=== PATIENT | female | born 1995 | race Caucasian/White ===

== ENCOUNTER → 2018-08-14 | Outpatient (REF) | payer OTHER ==
[2018-08-14 17:40] LABS: HEMATOCRIT 34.2 % (36.0-47.0); HEMOGLOBIN 12.3 g/dl (12.0-15.5); MEAN CORPUSCULAR HEMOGLOBIN 31.9 pg (27.0-33.0); MEAN CORPUSCULAR VOLUME 88.6 fl (80.0-96.0); PLATELET COUNT, AUTOMATED 266 10^3/uL (150-450); RED BLOOD COUNT 3.86 10^6/uL (4.00-5.40); WHITE BLOOD COUNT 9.3 10^3/uL (4.0-10.0)
[2018-08-17 10:08] LABS: HIV 1&2 SCREEN CENTAUR NEGATIVE (NEGATIVE); RUBELLA IgG QUALITATIVE IMMUNE (IMMUNE)
== END ==
LOC: M LAB REF 16:50
PROVIDERS: ATTEND Nurse Practitioner Women's Health
DX: Z34.81 Encounter for supervision of other normal pregnancy, first trimester (principal)

== ENCOUNTER 2018-10-02 15:53 | Emergency (ER) | payer OTHER ==
[~2018-10-02] VITALS: Ht 162.6 cm; Wt 61.4 kg
[2018-10-02 17:38] LABS: BASO % 0.2 % (0.0-1.0); EOS # 0.1 10^3/uL (0.0-0.50); EOS % 0.5 % (0.0-3.0); HEMATOCRIT 33.3 % (36.0-47.0); HEMOGLOBIN 11.6 g/dl (12.0-15.5); LYMPH # 2.3 10^3/uL (1.5-6.5); LYMPH % 20.3 % (24.0-44.0); MEAN CORPUSCULAR HEMOGLOBIN 30.9 pg (27.0-33.0); MEAN CORPUSCULAR HGB CONC 34.8 g/dl (32.0-36.5); MEAN CORPUSCULAR VOLUME 88.6 fl (80.0-96.0); MONO # 0.8 10^3/uL (0.0-0.8); MONO % 6.7 % (0.0-5.0); NEUTROPHILS # 8.1 10^3/uL (1.8-7.7); NEUTROPHILS % 71.6 % (36.0-66.0); PLATELET COUNT, AUTOMATED 229 10^3/uL (150-450); RED BLOOD COUNT 3.76 10^6/uL (4.00-5.40); WHITE BLOOD COUNT 11.3 10^3/uL (4.0-10.0)
[2018-10-02 18:04] LABS: BLOOD UREA NITROGEN 4 MG/DL (7-18); CALCIUM LEVEL 8.7 MG/DL (8.5-10.1); CARBON DIOXIDE LEVEL 27 MEQ/L (21-32); CHLORIDE LEVEL 107 MEQ/L (98-107); CREATININE FOR GFR 0.59 MG/DL (0.55-1.30); GLOMERULAR FILTRATION RATE > 60.0 (>60); GLUCOSE, FASTING 78 MG/DL (70-100); POTASSIUM SERUM 3.6 MEQ/L (3.5-5.1); SODIUM LEVEL 139 MEQ/L (136-145)
--- NOTE | 2018-10-02 18:18 | REPVR ---
EXAM: US , Limited EXAM DATE/TIME: 10/02/2018 5:23 PM CLINICAL HISTORY: 23 years old, female; complicated by abdominal or pelvic pain; Generalized abdominal pain; Second trimester; Gestational age or lmp: 17 weeks 5 days; ; Additional info: Cramping, 18 weeks , oked by Dr. Bowser to change to ltd TECHNIQUE: Imaging protocol: Real-time ultrasound of the maternal uterus with image documentation. Exam focused on the clinical indication. COMPARISON: US OB 10/02/2018 5:11 PM FINDINGS: GESTATION: Gestation: Single gestation. Heart rate: heart rate 143 beats per minute Amniotic fluid: Amniotic fluid index is 18.4 cm. IMPRESSION: Normal amniotic fluid index. Electronically signed by: Ilia Anders On 10/02/2018 18:18:12 PM
[2018-10-02 20:40] LABS: CHLAMYDIA DNA AMPLIFICATION NEGATIVE (NEGATIVE); GC DNA AMPLIFICATION NEGATIVE (NEGATIVE)
[2018-10-02 20:54] VITALS: BP 115/56
[2018-10-02] MEDS ORDERED: AUGM875T28 PO ×2 (20:57→21:08)
== END 2018-10-02 21:16 | disposition home or self-care (01) ==
LOC: M ED 15:53
DX: O23.42 Unspecified infection of urinary tract in pregnancy, second trimester (principal); Z3A.18 18 weeks gestation of pregnancy; Z79.899 Other long term (current) drug therapy

== ENCOUNTER 2018-10-04 21:47 | Inpatient (IN) | payer OTHER ==
[~2018-10-04] VITALS: Ht 162.6 cm; Wt 58.9 kg
[~2018-10-04 21:47] MED LIST: AUGM875T28 PO
[2018-10-04] MEDS ORDERED: NS 1,000 ML IV ONE (22:00)
[2018-10-04] MEDS ORDERED: CHARCOAL ACTIVATED LIQUID 25 GM/120 ML BTL PO ONE (22:00)
[2018-10-04 22:24] LABS: BASO % 0.2 % (0.0-1.0); EOS % 0.1 % (0.0-3.0); HEMATOCRIT 34.2 % (36.0-47.0); HEMOGLOBIN 12.2 g/dl (12.0-15.5); LYMPH # 1.9 10^3/uL (1.5-6.5); LYMPH % 16.3 % (24.0-44.0); MEAN CORPUSCULAR HEMOGLOBIN 31.7 pg (27.0-33.0); MEAN CORPUSCULAR HGB CONC 35.7 g/dl (32.0-36.5); MEAN CORPUSCULAR VOLUME 88.8 fl (80.0-96.0); MONO # 0.7 10^3/uL (0.0-0.8); MONO % 6.3 % (0.0-5.0); NEUTROPHILS % 76.4 % (36.0-66.0); PLATELET COUNT, AUTOMATED 235 10^3/uL (150-450); RED BLOOD COUNT 3.85 10^6/uL (4.00-5.40); WHITE BLOOD COUNT 11.7 10^3/uL (4.0-10.0)
[2018-10-04 22:48] LABS: ACETAMINOPHEN LEVEL < 2.0 UG/ML (10.0-30.0); ALBUMIN 3.5 GM/DL (3.2-5.2); ALT/SGPT 14 U/L (12-78); BILIRUBIN,DIRECT 0.1 MG/DL (0.0-0.2); BILIRUBIN,TOTAL 0.3 MG/DL (0.2-1.0); BLOOD UREA NITROGEN 5 MG/DL (7-18); CALCIUM LEVEL 8.4 MG/DL (8.5-10.1); CARBON DIOXIDE LEVEL 20 MEQ/L (21-32); CHLORIDE LEVEL 109 MEQ/L (98-107); CPK CREATINE PHOSPHOKINASE 77 U/L (26-192); CREATININE FOR GFR 0.57 MG/DL (0.55-1.30); ETHYL ALCOHOL (ETHANOL) < 0.003 % (0.000-0.010); GLOMERULAR FILTRATION RATE > 60.0 (>60); GLUCOSE, FASTING 98 MG/DL (70-100); POTASSIUM SERUM 3.7 MEQ/L (3.5-5.1); SALICYLATE LEVEL < 1.7 MG/DL (5.0-30.0); SODIUM LEVEL 139 MEQ/L (136-145); TOTAL PROTEIN 6.7 GM/DL (6.4-8.2)
[2018-10-04 23:45] LABS: AMPHETAMINES LEVEL URINE NEGATIVE (NEGATIVE); BARBITURATES URINE NEGATIVE (NEGATIVE); BENZODIAZEPINES URINE POSITIVE (NEGATIVE); CANNABINOIDS URINE NEGATIVE (NEGATIVE); COCAINE METABOLITE URINE NEGATIVE (NEGATIVE); METHADONE URINE NEGATIVE (NEGATIVE); OPIATES URINE NEGATIVE (NEGATIVE); PHENCYCLIDINE URINE NEGATIVE (NEGATIVE)
[2018-10-05] MEDS ORDERED: PREN1CHW6 PO (15:55)
[2018-10-05] MEDS ORDERED: ACET-683 PO (15:55)
[2018-10-05] MEDS ORDERED: MOM 30ML SUSPENSION UDC PO PRN ×2 (16:15→16:30)
[2018-10-05] MEDS ORDERED: ACETAMINOPHEN TAB 650MG DOSE (2X325MG) PO PRN ×2 (16:15→16:30)
[2018-10-05] MEDS ORDERED: diphenhydrAMINE 25 MG CAP PO PRN (16:30)
--- NOTE | 2018-10-05 20:42 | ECGEPIP ---
[facility] - ED Test Date: 2018-10-04 Pat Name: JANET VILLARREAL Department: Room: - Gender: Female [employer] U[employer]rer: CHATA : 1995 Requested By: FRANDY Monge Order Number: [id number] Reading MD: Frandy Concepcion Measurements Intervals [place] Rate: 116 P: 53 IN: 153 QRS: 84 QRSD: 86 T: 25 QT: 328 QTc: 456 Interpretive Statements SINUS TACHYCARDIA Comparison tracing not on file Electronically Signed on 10-05-2018 20:41:35 EDT by Frandy Concepcion
[2018-10-05 23:34] VITALS: BP 138/93
[2018-10-06 06:47] VITALS: BP 108/69
[2018-10-06] MEDS: hydrOXYzine 50 MG TAB PO PRN (09:12)
[2018-10-06] MEDS: PRENATAL VITAMINS CHEWABLE TABLET PO SCH (11:02)
--- NOTE | 2018-10-06 11:30 | MHHPEPDOC ---
[facility] History & Physical History and Physical DATE OF ADMISSION: Oct 05, 2018 at 16:09 New Patient Gifty Meadows Age 23 Female Date of : 1995 Date of Service: 10/06/2018 Chief Complaint "I just wanted to kill myself." History of Present Illness The patient a 23 year old woman presented to [facility] reporting that she had been thinking about overdosing on her sertraline. She describes multiple stressors including a recent marriage after a very short courtship to her who's a soldier deployed in [place]. She describes that they had gotten earlier in April after meeting earlier that particular month. She reports that she got and subsequently they were after he found out he would be deploying. She reports that since that point, she has been fairly depressed, alone and isolated. She describes that she's become more unable to attend to her daily needs, endorsing significant loss of interest and concentration focus problems as well as suicidal thoughts. She does describe having significant problems with mood variation, but primarily has difficulty predicting her mood [id number] with no sustained periods of mood variation. Review Of Systems Depression: as above. Anxiety: excessive worry about "small things" with intermittent episodes of panic and appear to be situational [place]: The patient denies any episodes of euphoria/dysphoria associated with decreased need for sleep, hedonism, talkatively or impulsivity lasting longer than 5 days. Psychotic: The patient denies any experiences of auditory or visual hallucinat ions. They deny any episodes of paranoia or delusional thinking in the past Trauma: The patient denies any traumatic events associated with nightmares or intrusive thoughts. Borderline: The patient screens positive for borderline personality disorder as time with significant traits related to chronic anger and emptyness, identity problems, fiery relationships and significant mood variation. Past Psychiatric History The patient has a history of being admitted to a psychiatric unit in the past. Reportedly with a self-harm attempt. Denies any suicide attempt. She reports that she was admitted several years ago by her parents for reported cutting. She describes being diagnosed with anxiety, depression and has seen a counselor and has been on Celexa and sertraline in the past, but reports that she is non- compliant with it as she feels it "doesn't help very well." Allergies Please see below. Family Psychiatric History The patient reports a history of bipolar and anxiety in her family as well as alcoholism on both sides. Denies any history of suicide. Social History The patient grew up in [place], [place] to an intact family. She denies any significant abuse as a child. She describes graduating high school subsequently trying college, but feeling that it was "not for her." She has recently met her of which they had roughly a one-month courtship before getting due to her . She currently lives alone on [place]. No significant legal problems. 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 Describes that her family has some financial troubles that are a source of worry for her. Substance Abuse History The patient reports smoking cannabis intermittently, but not consistently. Reports in the past to drinking alcohol excessively, but currently denies. Medical History The patient is 18 weeks . Mental Status Examination General: Fair hygiene Speech: Spontaneous and fluid Thought processes: Linear and logical MSK: Smooth and coordinated gait, no signs of tremors or involuntary orofacial movements Thought content: Hopelessness Abstract reasoning, and computation: Intact Description of associations: Intact Description of abnormal or psychotic thoughts: Denies any suicidal or homicidal ideation. Denies any auditory or visual hallucinations. Does not appear to be responding to internal stimuli. Does not appear to be endorsing any bizarre or paranoid ideation. Judgment: Poor Insight: Poor Orientation: Alert and orientated 3 Cognition: Grossly normal Recent and remote memory: Intact Attention span and concentration: Intact Fund of knowledge: Adequate Mood: "bad" Affect: dysthymic with a profoundly constricted range Diagnoses Unspecified depressive disorder Rule out MDD. Borderline personality disorder Assessment and Plan The patient a 23 year old woman with a likely history of borderline personality disorder presents in a depressive episode. Is unclear if this is related to an adjustment or whether it's an endogenous major depression, but at this point that appears to be fairly academic. She has been non-compliant with the medications, but is also 18 weeks . Disposition The patient will need greater than 2 midnight's in order to stabilize her risk factors and severe depression. Problem List 1. Risk for suicide 2. Depression 3. Anxiety Initial Treatment Plan 1. Patient was admitted on a 9.39 legal status. 2. Complete history was obtained. 3. With patients permission, family will be contacted and database will be expanded. 4. Patients medication regimen will be reviewed and changed accordingly. 5. Patient will be provided with protected environment. 6. Patient will be treated with individual, group, and milieu therapies. 7. Patient will receive supportive psych-education. 8. Discharge planning will commence immediately. 9. Outpatient follow-up treatment will be strongly recommended. 10. The initial treatment plan will focus initially on psychotherapy and group therapy. Discussed at length the risks and benefits of various SSRI antidepressants and atypical agents and and the risks and benefits associated with it. She described that she was concerned about the risks to her unborn child and that she wished to try therapy on the unit first in order to try to stabilize her depression. This will likely be effective if her depression is related to an adjustment disorder. However, if it isn't endogenous this will likely be more problematic. Additionally discussed current changing her social supports as well as engaging various changes in her outpatient life that will support her through her stay. Estimated Length Of Stay 4 days. Time Spent 45 minutes. Friday Vital Signs Vital Signs Date Time Temp Pulse Resp B/P (MAP) Pulse Ox O2 Delivery O2 Flow Rate FiO2 10/06/18 08:48 Room Air 10/06/18 06:47 98.0 87 16 108/69 (82) 10/05/18 22:53 97 Medications Scheduled Vit37/Iron/Folic Acid (Prenata Chewable Tablet) 1 Each Tab.chew, 2 CHW PO DAILY, (Reported) Scheduled PRN Acetaminophen (Acetaminophen) 500 Mg Tablet, 1,000 MG PO Q6H PRN for PAIN, (Reported) Allergies Coded Allergies: cranberry (Verified Allergy, Intermediate, rash, 10/04/18) KIEL CORMIER DO Oct 06, 2018 11:30
--- NOTE | 2018-10-06 13:00 | HPEPDOC ---
General Date of Admission Oct 05, 2018 at 16:09 Date of Service: Oct 06, 2018 Chief Complaint The patient is a 23-year-old female admitted with a reason for visit of Depressive Disorder. Source: Patient, RN notes reviewed, Old records Exam Limitations: No limitations Severity: Moderate History of Present Illness 23 year old female with past medical history of depression, substance use disorder currently at 18 weeks has been admitted to the psychiatric service for depression with intentional overdose. I am evaluating the patient here for medical history and physical. Today she complained of feeling sad and depressed says too much is going on in her life and she could not deal with it anymore so she overdosed on sertraline and ibuprofen. Her Utox was positive for benzos. She denied any dizziness or light headedness , denied any nausea or vomiting. Home Medications Scheduled Vit37/Iron/Folic Acid (Prenata Chewable Tablet) 1 Each Tab.chew, 2 CHW PO DAILY, (Reported) Scheduled PRN Acetaminophen (Acetaminophen) 500 Mg Tablet, 1,000 MG PO Q6H PRN for PAIN, (Reported) Allergies Coded Allergies: cranberry (Verified Allergy, Intermediate, rash, 10/04/18) Past Medical History Medical History depression, substance use disorder Surgical History dental extractions Family History Significant Family History: Diabetes (grandmother) Social History * Smoker: non-smoker Alcohol: occationally Drugs: denies A-FIB/CHADSVASC A-FIB History Current/History of A-Fib/PAF?: No Review of Systems Constitutional: Denies: Chills, Fever, Night Sweats Eyes: Denies: Pain, Vision change ENT: Denies: Head Aches, Ear Pain, Dysphagia Skin: Denies: Rash, Lesions, Breakdown Pulmonary: Denies: Dyspnea, Cough Cardiovascular: Denies: Chest Pain, Palpitations, Orthopnea, Paroxysmal Noc. Dyspnea, Lt Headedness Gastrointestinal: Denies: Nausea, Vomiting, Abdominal Pain, Diarrhea Hematologic: Denies: Bruising, Bleeding Excessively Musculoskeletal: Denies: Neck Pain, Back Pain, Joint Pain, Muscle Pain, Spasms Physical Examination General Exam: Positive: Alert, Cooperative, No Acute Distress Eye Exam: Positive: PERRLA, Conjunctiva & lids normal, EOMI; Negative: Sclera icteric ENT Exam: Positive: Atraumatic, Mucous membr. moist/pink, Pharynx Normal Neck Exam: Positive: Supple; Negative: JVD, thyromegaly Chest Exam: Positive: Clear to auscultation, Normal air movement Heart Exam: Positive: Rate Normal, Regular Rhythm, Normal S1, Normal S2; Negative: Murmurs, Rubs Abdomen Exam: Positive: Normal bowel sounds, Soft; Negative: Tenderness, Hepatospenomegaly Extremity Exam: Positive: Normal pulses; Negative: Clubbing, Cyanosis, Edema Neuro Exam: Positive: Normal Gait, Normal Speech, Cranial Nerves 3-12 NL, Reflexes 2+ Psych Exam: Positive: Anxiety, Oriented x 3 Vital Signs Vital Signs Date Time Temp Pulse Resp B/P (MAP) Pulse Ox O2 Delivery O2 Flow Rate FiO2 10/06/18 08:48 Room Air 10/06/18 06:47 98.0 87 16 108/69 (82) 10/05/18 22:53 97 Assessment/Plan 23 year old female with past medical history of depression, substance use disorder currently at 18 weeks has been admitted to the psychiatric service for depression with intentional overdose with Sertraline and ibuprofeb. I am evaluating the patient here for medical history and physical. Psychiatric issues as per psychiatry No Active medical issues at present Plan / VTE VTE Prophylaxis Ordered?: No (frequently ambulatory) NAEEM RODRIGUEZ MD Oct 06, 2018 13:00
[2018-10-06 18:16] VITALS: BP 104/58
[2018-10-07 07:01] VITALS: BP 105/58
[2018-10-07] MEDS: PRENATAL VITAMINS CHEWABLE TABLET PO SCH (08:49)
--- NOTE | 2018-10-07 10:39 | MHIPNPDOC ---
[facility] Progress Note Progress Note Inpatient Progress Note Gifty Meadows Age 23 Female Date of : 1995 Date of Service: 10/07/2018 History of Present Illness The patient a 23 year old woman presented to [facility] reporting that she had been thinking about overdosing on her sertraline. She describes m ultiple stressors including a recent marriage after a very short courtship to her who's a soldier deployed in [place]. She describes that they had gotten earlier in April after meeting earlier that particular month. She reports that she got and subsequently they were after he found out he would be deploying. She reports that since that point, she has been fairly depressed, alone and isolated. She describes that she's become more unable to attend to her daily needs, endorsing significant loss of interest and concentration focus problems as well as suicidal thoughts. She does describe having significant problems with mood variation, but primarily has difficulty predicting her mood [id number] with no sustained periods of mood variation. Interval History The patient is met with today in the office. She describes that the group therapy has not been very helpful and that she has noticed that her mood continues to be low with a persistent want to . She describes that she is interested in medications now and wishes to reconsider. The patient describes that she has had great difficulty holding back her "words" and feeling much more impulsive as her mood becomes lower. She describes that she has been able to attend groups at times, but has also been isolative at other times. No major behavioral problems noted on the unit. Review Of Systems As above. Psychotherapy None on this visit. Vital Signs Reviewed. Mental Status Examination General: Fair hygiene Speech: Spontaneous and fluid Thought processes: Linear and logical MSK: Smooth and coordinated gait, no signs of tremors or involuntary orofacial movements Thought content: Hopelessness Abstract reasoning, and computation: Intact Description of associations: Intact Description of abnormal or psychotic thoughts: Denies any suicidal or homicidal ideation. Denies any auditory or visual hallucinations. Does not appear to be responding to internal stimuli. Does not appear to be endorsing any bizarre or paranoid ideation. Judgment: Poor Insight: Poor Orientation: Alert and orientated 3 Cognition: Grossly normal Recent and remote memory: Intact Attention span and concentration: Intact Fund of knowledge: Adequate Mood: "bad" Affect: dysthymic with a profoundly constricted range Diagnoses Unspecified depressive disorder: unstable. Rule out MDD. Borderline personality disorder: unstable. Assessment and Plan The patient a 23 year old woman with a likely history of borderline personality disorder presents in a depressive episode. Is unclear if this is related to an adjustment or whether it's an endogenous major depression, but at this point that appears to be fairly academic. She has been non-compliant with the medications, but is also 18 weeks . Discussed with patient at length medication options as she feels that the group therapy is not helpful for improving her depression. Discussed Wellbutrin 150 mg daily of which we will start tomorrow. I explained the risks and benefits and as well as potential side effects and category in as well as the potential risks of various defects and issues that are still being st udied. The patient was given this option among several different ones and selected this option. Disposition The patient will need a continued inpatient stay in order to titrate medications and treat her suicidal thoughts. Time Spent 20 minutes [id number] Friday Vital Signs Vital Signs Date Time Temp Pulse Resp B/P (MAP) Pulse Ox O2 Delivery O2 Flow Rate FiO2 10/07/18 08:33 Room Air 10/07/18 07:01 98.5 62 14 105/58 (74) 10/05/18 22:53 97 Current Medications Current Medications Acetaminophen (Tylenol Tab) 650 mg Q6HP PRN PO HEADACHE or DISCOMFORT; Start 10/05/18 at 16:15; Status Cancel Acetaminophen (Tylenol Tab) 650 mg Q6HP PRN PO HEADACHE or DISCOMFORT Last administered on 10/07/18at 08:50; Start 10/05/18 at 16:30 Diphenhydramine HCl (Benadryl) 25 mg Q6HP PRN PO ANXIETY/AGITATION; Start 10/05/18 at 16:30 Home Med (Med Rec Complete!) ASDIRECTED XX ; Start 10/05/18 at 16:00; Stop 09/21 08/09 at 16:00; Status DC Hydroxyzine HCl (Atarax) 50 mg TIDP PRN PO anxiety/agitation Last administered on 10/06/18at 09:12; Start 10/05/18 at 16:15 Magnesium Hydroxide (Milk Of Magnesia) 30 ml DAILYPRN PRN PO CONSTIPATION; Start 10/05/18 at 16:15; Status Cancel Magnesium Hydroxide (Milk Of Magnesia) 30 ml DAILYPRN PRN PO CONSTIPATION; Start 10/05/18 at 16:30 Prenat Multivit/ [place]/Iron/Folic Ac ( Vitamins) 1 tab DAILY PO Last administered on 10/07/18at 08:49; Start 10/06/18 at 09:00 Allergies Coded Allergies: cranberry (Verified Allergy, Intermediate, rash, 10/04/18) KIEL CORMIER DO Oct 07, 2018 10:39
[2018-10-07 18:19] VITALS: BP 109/51
[2018-10-07] MEDS: hydrOXYzine 50 MG TAB PO PRN (20:55)
[2018-10-08 06:45] VITALS: BP 102/57
[2018-10-08] MEDS: PRENATAL VITAMINS CHEWABLE TABLET PO SCH (09:38)
[2018-10-08] MEDS: buPROPion **XL** TABLET 150MG (WELLBUTRIN XL) PO SCH (09:38)
[2018-10-08 18:00] VITALS: BP 118/60
--- NOTE | 2018-10-08 18:15 | MHIPNPDOC ---
[facility] Progress Note Progress Note Inpatient Progress Note Gifty Meadows Age 23 Female Date of : 1995 Date of Service: 10/08/2018 History of Present Illness The patient a 23 year old woman presented to [facility] reporting that she had been thinking about overdosing on her sertraline. She describes m ultiple stressors including a recent marriage after a very short courtship to her who's a soldier deployed in [place]. She describes that they had gotten earlier in April after meeting earlier that particular month. She reports that she got and subsequently they were after he found out he would be deploying. She reports that since that point, she has been fairly depressed, alone and isolated. She describes that she's become more unable to attend to her daily needs, endorsing significant loss of interest and concentration focus problems as well as suicidal thoughts. She does describe having significant problems with mood variation, but primarily has difficulty predicting her mood [id number] with no sustained periods of mood variation. Interval History The patient is met with today. She describes that the Wellbutrin is doing significantly well and her depression appears to be lifting. She notes that she is much more able to socialize and that she feels her mood is becoming much more stable. She reports that her chronic suicidal thoughts in the form of "not want to be here" thoughts have improved and that she feel she can cope with them much better. She describes that she is interested in being discharged tomorrow as she is making improvements. She has not demonstrated any concerning safety issues on the unit. She describes that her passive ideation that is not necessarily suicidal, but a vague hopelessness is fairly chronic as she is able to clarify in this session. She denies any side effects from the Wellbutrin at this time. Review Of Systems Reports improved hopelessness, better mood, improved sleep, and a increased ability to enjoy various activities. Psychotherapy None on this visit. Vital Signs Reviewed. Mental Status Examination General: Well dressed with good hygiene Speech: Spontaneous and fluid Thought processes: Linear and logical MSK: Smooth and coordinated gait, no signs of tremors or involuntary orofacial movements Thought content: Future orientated Abstract reasoning, and computation: Intact Description of associations: Intact Description of abnormal or psychotic thoughts: Admits to the above-mentioned hopelessness at times, but that this is described as fairly chronic. Denies overt suicidal ideation or homicidal ideation. Denies auditory or visual hallucinations. Does not appear to be responding to internal stimuli. Judgment: fair Insight: fair Orientation: Alert and orientated 3 Cognition: Grossly normal Recent and remote memory: Intact Attention span and concentration: Intact Fund of knowledge: Adequate Mood: "okay" Affect: Euthymic with a full range Diagnoses Unspecified depressive disorder: stable. Rule out MDD. Borderline personality disorder: stable. Assessment and Plan The patient a 23 year old woman with a likely history of borderline personality disorder presents in a depressive episode. Is unclear if this is related to an adjustment or whether it's an endogenous major depression, but at this point that appears to be fairly academic. She has been non-compliant with the medications, but is also 18 weeks . Continue Wellbutrin 150 mg daily for now. Disposition Likely discharge tomorrow as patient no longer meets inpatient involuntary criteria and does not elect for a voluntary continuation of her admission. Time Spent 15 minutes face to face Vital Signs Vital Signs Date Time Temp Pulse Resp B/P (MAP) Pulse Ox O2 Delivery O2 Flow Rate FiO2 10/08/18 09:51 Room Air 10/08/18 06:45 98.7 94 12 102/57 (72) 10/05/18 22:53 97 Current Medications Current Medications Acetaminophen (Tylenol Tab) 650 mg Q6HP PRN PO HEADACHE or DISCOMFORT; Start 10/05/18 at 16:15; Status Cancel Acetaminophen (Tylenol Tab) 650 mg Q6HP PRN PO HEADACHE or DISCOMFORT Last administered on 10/07/18at 08:50; Start 10/05/18 at 16:30 Bupropion HCl (Wellbutrin Xl) 150 mg DAILY PO Last administered on 10/08/18at 09:38; Start 10/08/18 at 09:00 Diphenhydramine HCl (Benadryl) 25 mg Q6HP PRN PO ANXIETY/AGITATION/sleep; Start 10/05/18 at 16:30 Home Med (Med Rec Complete!) ASDIRECTED XX ; Start 10/05/18 at 16:00; Stop 10/05/18 at 16:00; Status DC Hydroxyzine HCl (Atarax) 50 mg TIDP PRN PO anxiety/agitation/sleep Last administered on 10/07/18at 20:55; Start 10/05/18 at 16:15 Magnesium Hydroxide (Milk Of Magnesia) 30 ml DAILYPRN PRN PO CONSTIPATION; Start 10/05/18 at 16:15; Status Cancel Magnesium Hydroxide (Milk Of Magnesia) 30 ml DAILYPRN PRN PO CONSTIPATION; Start 10/05/18 at 16:30 Prenat Multivit/ [place]/Iron/Folic Ac ( Vitamins) 1 tab DAILY PO Last administered on 10/08/18at 09:38; Start 10/06/18 at 09:00 Allergies Coded Allergies: cranberry (Verified Allergy, Intermediate, rash, 10/04/18) KIEL CORMIER DO Oct 08, 2018 18:15
[2018-10-08] MEDS: hydrOXYzine 50 MG TAB PO PRN (21:53)
--- NOTE | 2018-10-09 06:33 | MHDSPDOC ---
[facility] Discharge Summary Discharge Summary DATE OF ADMISSION: Oct 05, 2018 at 16:09 DATE OF DISCHARGE: 10/09/18 Discharge Gifty Meadows Age 23 Female Date of : 1995 Date of Service: 10/09/2018 Diagnoses 1. MDD, severe, in full remission. 2. Borderline personality disorder. History of Present Illness The patient, a 23-year-old woman, presented to [facility] reporting that she had been thinking about overdosing on her sertraline. She describes multiple stressors including a recent marriage after a very short courtship to her who's a soldier deployed in [place]. She describes that they had gotten earlier in April after meeting earlier that particular month. She reports that she got and subsequently they were after he found out he would be deploying. She reports that since that point, she has been fairly depressed, alone and isolated. She describes that she has become more unable to attend to her daily needs, endorsing significant loss of interest and concentration focus problems as well as suicidal thoughts. She does describe having significant problems with mood variation, but primarily has difficulty predicting her mood [id number] with no sustained periods of mood variation. Consultants Involved Hospitalist/PCP screening Treatment and Progress On The Unit Patient was admitted to the unit initially with suicidal thoughts. She was 18 weeks at the last gauging point. She subsequently declined medication on first visit. Subsequently she noticed that she did not get better on her group therapy and individual therapy on the unit and elected to try Wellbutrin. Explained the risks, benefits of with Wellbutrin as a category B me dication. She elected to take it. She noticed strong improvement after the first day. After another day of observation, she reported her suicidal symptoms had resolved and that she was prepared for discharge. She offered an effective discharge plan and demonstrated no concerning ideation or symptoms while on the unit, and thus was discharged at her request. Discharge Assessment Patient, a 23-year-old woman with a history of depression and likely borderline personality disorder, presents in a depressed state with suicidal thoughts. She responds well to Wellbutrin and the therapeutic milieu. She has been observed for at least 24 hours with no suicidal ideation and requests discharge, no longer meeting criteria for involuntary admission and declining a further in- patient admission. Mental Status Examination General: Well dressed with good hygiene Speech: Spontaneous and fluid Thought processes: Linear and logical MSK: Smooth and coordinated gait, no signs of tremors or involuntary orofacial movements Thought content: Future orientated Abstract reasoning, and computation: Intact Description of associations: Intact Description of abnormal or psychotic thoughts: Denies any suicidal or homicidal ideation. Denies any auditory or visual hallucinations. Does not appear to be responding to internal stimuli. Does not appear to be endorsing any bizarre or paranoid ideation Judgment: fair Insight: fair Orientation: Alert and orientated 3 Cognition: Grossly normal Recent and remote memory: Intact Attention span and concentration: Intact Fund of knowledge: Adequate Mood: "okay" Affect: Euthymic with a full range Follow Up The social work team worked during the pre-discharge meeting in order to evaluate for further issues of lethality address them fully before discharge. They worked on safety planning with the patient's family members in order to ensure that the patient will have a safe and effective discharge. Discharge medications: Wellbutrin 150 extended release daily. Time Spent The amount of time spent in the coordination of care for this patient was approximately 30 minutes. Friday Vital Signs/I&Os Vital Signs Date Time Temp Pulse Resp B/P (MAP) Pulse Ox O2 Delivery O2 Flow Rate FiO2 10/08/18 18:00 98.9 95 18 118/60 (79) 10/08/18 09:51 Room Air 10/05/18 22:53 97 Medications Scheduled Bupropion Hcl (Bupropion Xl) 150 Mg Tab.er.24h, 150 MG PO DAILY for mood for 7 Days, #7 Vit37/Iron/Folic Acid ([place] Chewable Tablet) 1 Each Tab.chew, 2 CHW PO DAILY, (Reported) Scheduled PRN Acetaminophen (Acetaminophen) 500 Mg Tablet, 1,000 MG PO Q6H PRN for PAIN, (Reported) Allergies Coded Allergies: cranberry (Verified Allergy, Intermediate, rash, 10/04/18) KIEL CORMIER DO Oct 09, 2018 06:33
[2018-10-09 06:41] VITALS: BP 123/63
[2018-10-09] MEDS: PRENATAL VITAMINS CHEWABLE TABLET PO SCH (08:22)
[2018-10-09] MEDS: buPROPion **XL** TABLET 150MG (WELLBUTRIN XL) PO SCH (08:22)
[2018-10-09] MEDS ORDERED: BUPR150T3 PO (08:39)
== END 2018-10-09 11:35 | disposition home or self-care (01) | DRG 832 ==
LOC: M ED 21:47 → M ED INP 10-05 16:09 → M PSY 10-05 23:30
PROVIDERS: ADMIT Psychiatry & Neurology Addiction Medicine; ATTEND Psychiatry & Neurology Addiction Medicine
DX: O99.342 Other mental disorders complicating pregnancy, second trimester (principal); F32.2 Major depressive disorder, single episode, severe without psychotic features; F60.3 Borderline personality disorder; Z81.8 Family history of other mental and behavioral disorders; Z81.1 Family history of alcohol abuse and dependence; T39.392A Poisoning by other nonsteroidal anti-inflammatory drugs [NSAID], intentional self-harm, initial encounter; Z91.018 Allergy to other foods; T43.222A Poisoning by selective serotonin reuptake inhibitors, intentional self-harm, initial encounter

== ENCOUNTER → 2018-10-15 | Outpatient (REF) | payer OTHER ==
[~2018-10-15] MED LIST changes: +ACET-683 PO; +BUPR150T3 PO; +PREN1CHW6 PO
[2018-10-15 22:52] LABS: CHLAMYDIA DNA AMPLIFICATION NEGATIVE (NEGATIVE); GC DNA AMPLIFICATION NEGATIVE (NEGATIVE)
== END ==
LOC: M SFHCLERA 12:09
PROVIDERS: ATTEND Physician Assistant
DX: N89.8 Other specified noninflammatory disorders of vagina (principal)
CPT/HCPCS: 81002; 87070; 87077; 87086; 87661; G0463

== ENCOUNTER 2018-10-19 16:32 | Emergency (ER) | payer OTHER ==
[~2018-10-19] VITALS: Ht 162.6 cm; Wt 59.1 kg
[2018-10-19 19:37] VITALS: BP 110/66
== END 2018-10-19 19:45 | disposition home or self-care (01) ==
LOC: M ED 16:32
DX: F43.20 Adjustment disorder, unspecified (principal); F33.9 Major depressive disorder, recurrent, unspecified; Z79.899 Other long term (current) drug therapy; Z91.018 Allergy to other foods

== ENCOUNTER 2018-11-11 11:30 | Observation (INO) | payer OTHER ==
[~2018-11-11] VITALS: Ht 162.6 cm; Wt 56.3 kg
[2018-11-11] MEDS ORDERED: NS 1,000 ML IV ONE ×2 (12:00→14:15)
[2018-11-11] MEDS ORDERED: IBUP-1022 PO (12:05)
[2018-11-11 12:35] LABS: BASO % 0.4 % (0.0-1.0); EOS # 0.1 10^3/uL (0.0-0.50); EOS % 0.6 % (0.0-3.0); HEMATOCRIT 42.2 % (36.0-47.0); HEMOGLOBIN 14.4 g/dl (12.0-15.5); LYMPH # 1.8 10^3/uL (1.5-6.5); LYMPH % 21.3 % (24.0-44.0); MEAN CORPUSCULAR HEMOGLOBIN 31.2 pg (27.0-33.0); MEAN CORPUSCULAR HGB CONC 34.1 g/dl (32.0-36.5); MEAN CORPUSCULAR VOLUME 91.5 fl (80.0-96.0); MONO # 0.5 10^3/uL (0.0-0.8); MONO % 5.7 % (0.0-5.0); NEUTROPHILS % 71.6 % (36.0-66.0); PLATELET COUNT, AUTOMATED 320 10^3/uL (150-450); RED BLOOD COUNT 4.61 10^6/uL (4.00-5.40); WHITE BLOOD COUNT 8.3 10^3/uL (4.0-10.0)
[2018-11-11 12:51] LABS: INR 1.11
[2018-11-11 12:52] LABS: PARTIAL THROMBOPLASTIN TIME 27.1 SECONDS (25.0-38.4)
[2018-11-11 13:09] LABS: HCG, SERUM QUALITATIVE NEGATIVE (NEGATIVE)
[2018-11-11 13:45] LABS: BLOOD UREA NITROGEN 11 MG/DL (7-18); CALCIUM LEVEL 9.1 MG/DL (8.5-10.1); CARBON DIOXIDE LEVEL 25 MEQ/L (21-32); CHLORIDE LEVEL 107 MEQ/L (98-107); CREATININE FOR GFR 0.99 MG/DL (0.55-1.30); ETHYL ALCOHOL (ETHANOL) < 0.003 % (0.000-0.010); GLOMERULAR FILTRATION RATE > 60.0 (>60); GLUCOSE, FASTING 103 MG/DL (70-100); MAGNESIUM LEVEL 2.5 MG/DL (1.8-2.4); POTASSIUM SERUM 4.1 MEQ/L (3.5-5.1); SODIUM LEVEL 141 MEQ/L (136-145); THYROID STIMULATING HORMONE 0.438 uIU/ML (0.358-3.740)
[2018-11-11 16:08] LABS: CHLAMYDIA DNA AMPLIFICATION NEGATIVE (NEGATIVE); GC DNA AMPLIFICATION NEGATIVE (NEGATIVE)
[2018-11-11] MEDS ORDERED: ISOVUE-370 76% 100ML VIAL (Q9967) As Ordered ONE (16:39)
--- NOTE | 2018-11-11 16:53 | REP ---
PELVIC ULTRASOUND: Real-time sonographic evaluation of the pelvis performed utilizing transabdominal and endovaginal technique. The bladder measures 6.8 x 4.1 x 9.3 cm. The uterus measures 7.0 x 5.1 x 5.7 cm. IUD is seen in the endometrial canal. Endometrial echo complex does not appear to be significantly thickened, partially obscured by the IUD. Ovaries are normal in size and echo texture, right ovary measuring 3.3 x 2.2 x 2.5 cm and left ovary 2.6 x 1.9 x 2.2 cm. There is no adnexal mass or free fluid. There is no torsion of either ovary, RI right ovary is 0.54 and left ovary 0.42. IMPRESSION: IUD in the endometrial canal. No adnexal mass or free fluid. No torsion. Electronically Signed by Ricardo Bowser MD 11/13/2018 10:48 A
--- NOTE | 2018-11-11 17:15 | REPVR ---
EXAM: CT Angiography Chest With Contrast EXAM DATE/TIME: 11/11/2018 4:53 PM CLINICAL HISTORY: 23 years old, female; Chest pain; Additional info: Palpitations TECHNIQUE: Imaging protocol: Axial computed tomographic angiography images of the chest with intravenous contrast using CT angiography protocol. 3D rendering: MIP reconstructed images were created and reviewed. Radiation optimization: All CT scans at this facility use at least one of these dose optimization techniques: automated exposure control; mA and/or kV adjustment per patient size (includes targeted exams where dose is matched to clinical indication); or iterative reconstruction. Contrast material: ISO 370; Contrast volume: 75 ml; Contrast route: IV; COMPARISON: No relevant prior studies available. FINDINGS: Pulmonary arteries: There are no pulmonary emboli. Great vessels off aortic arch: Incidental note is made of a replaced right subclavian artery originating from the posterior aortic arch. Otherwise unremarkable. Aorta: There is no aortic dissection or aneurysm. Lungs: Unremarkable. No consolidation. No masses. Pleural space: Unremarkable. No pneumothorax. No pleural effusion. Heart: Unremarkable. No cardiomegaly. No pericardial effusion. Lymph nodes: Unremarkable. No enlarged lymph nodes. Bones/joints: Unremarkable. No acute fracture. Soft tissues: Unremarkable. IMPRESSION: 1. There is no aortic dissection or aneurysm. 2. There are no pulmonary emboli. Electronically signed by: Ilia Anders On 11/11/2018 17:15:16 PM
[2018-11-11] MEDS ORDERED: ACETAMINOPHEN TAB 650MG DOSE (2X325MG) PO PRN (17:45)
[2018-11-11] MEDS ORDERED: ACET-683 PO (17:47)
[2018-11-11] MEDS ORDERED: BUPR150T3 PO (17:47)
[2018-11-11] MEDS: NS 1,000 ML IV SCH (18:17)
--- NOTE | 2018-11-11 18:18 | HPEPDOC ---
General Date of Admission 11/11/18 Date of Service: Nov 11, 2018 Attending Physician: BRENT SHEA MD Chief Complaint The patient is a 23-year-old female admitted with a reason for visit of Cardiac Problem. Source: Patient Exam Limitations: No limitations Timing/Duration: Unsure Severity: Other (none applicable) Associated Symptoms: Shortness of breath, Other (palpitations) Home Medications Scheduled Bupropion Hcl (Bupropion Xl) 150 Mg Tab.er.24h, 150 MG PO DAILY, (Reported) Scheduled PRN Acetaminophen (Acetaminophen) 500 Mg Tablet, 500 MG PO Q6H PRN for PAIN, (Reported) Allergies Coded Allergies: cranberry (Verified Allergy, Intermediate, rash, 10/04/18) Past Medical History Medical History Status post elective 2 and half weeks ago (20 with gestation), history of suicide in the past Surgical History None Family History Significant Family History: No pertinent family hx Social History * Smoker: Denies Alcohol: Denies Drugs: denies A-FIB/CHADSVASC A-FIB History Current/History of A-Fib/PAF?: No Review of Systems Constitutional: Denies: Chills, Fever, Malaise, Night Sweats, Weakness, Fatigue, Weight Loss, Lethargy, Other Eyes: Denies: Pain, Vision change, Conjunctivae inflammation, Eyelid inflammation, Redness, Other ENT: Denies: Head Aches, Ear Pain, Dysphagia, Sinus Congestion, Post Nasal Drip, Sore Throat, Epistaxis, Other Symptoms Pulmonary: Reports: Dyspnea Cardiovascular: Reports: Palpitations Gastrointestinal: Denies: Nausea, Vomiting, Abdominal Pain, Diarrhea, Constipation, Melena, Hematochezia, Other Symptoms Genitourinary: Denies: Dysuria, Frequency, Incontinence, Hematuria, Retention, Other Symptoms Hematologic: Denies: Bruising, Bleeding Excessively, Petecchia, Purpura, Enlarged Lymph Nodes, Other Hematologic Endocrine: Denies: Polydipsia, Polyphagia, Polyuria, Heat Intolerance, Cold Intolerance, Other Endocrine Sx Musculoskeletal: Denies: Neck Pain, Back Pain, Shoulder Pain, Arm Pain, Hand Pain, Leg Pain, Foot Pain, Joint Pain, Muscle Pain, Spasms, Other Symptoms Neurological: Denies: Weakness, Numbness, Incoordination, Change in speech, Confusion, Seizures, Other Symptoms Psych: Denies: Mood Normal, Anxiety, Depression, Memory Issues, Thoughts of Self Harm, Anger, Thoughts of Harming Other, Other Psych Physical Examination General Exam: Positive: Alert, Cooperative Eye Exam: Positive: PERRLA, Conjunctiva & lids normal ENT Exam: Positive: Atraumatic Neck Exam: Positive: Supple Chest Exam: Positive: Clear to auscultation, Normal air movement Heart Exam: Positive: Rate Normal, Normal S1, Normal S2 Abdomen Exam: Positive: Normal bowel sounds, Soft Extremity Exam: Positive: Normal pulses Skin Exam: Positive: Nl turgor and temperature Neuro Exam: Positive: Strength at 5/5 X4 ext, Sensation Intact Psych Exam: Positive: Mental status NL, Mood NL Vital Signs Vital Signs Date Time Temp Pulse Resp B/P (MAP) Pulse Ox O2 Delivery O2 Flow Rate FiO2 11/11/18 18:03 70 98 11/11/18 18:00 132/93 (106) 11/11/18 12:09 Nasal Cannula 2.0 11/11/18 12:01 99.5 16 Laboratory Data Labs 24H Laboratory Tests 2 11/11/18 12:11: Anion Gap 9, Glomerular Filtration Rate > 60.0, Blood Urea Nitrogen 11, Creatinine 0.99, Sodium Level 141, Potassium Level 4.1, Chloride Level 107, Carbon Dioxide Level 25, Calcium Level 9.1, Magnesium Level 2.5H, Thyroid Stimulating Hormone (TSH) 0.438, Human Chorionic Gonadotropin, Qual NEGATIVE, Ethyl Alcohol Level < 0.003 11/11/18 12:12: Immature Granulocyte % (Auto) 0.4, White Blood Count 8.3, Red Blood Count 4.61, Hemoglobin 14.4, Hematocrit 42.2, Mean Corpuscular Volume 91.5, Mean Corpuscular Hemoglobin 31.2, Mean Corpuscular Hemoglobin Concent 34.1, Red Cell Distribution Width 11.9, Platelet Count 320, Neutrophils (%) (Auto) 71.6H, Lymphocytes (%) (Auto) 21.3L, Monocytes (%) (Auto) 5.7H, Eosinophils (%) (Auto) 0.6, Basophils (%) (Auto) 0.4, Neutrophils # (Auto) 6.0, Lymphocytes # (Auto) 1.8, Monocytes # (Auto) 0.5, Eosinophils # (Auto) 0.1, Basophils # (Auto) 0.0, Nucleated Red Blood Cells % (auto) 0.0, Prothrombin Time 14.0, Prothromb Time International Ratio 1.11, Activated Partial Thromboplast Time 27.1 11/11/18 12:23: Bedside Glucose (Misc Panel) 96 11/11/18 14:15: Chlamydia trachomatis DNA (RICCO) NEGATIVE, Neisseria gonorrhoeae DNA (RICCO) NEGATIVE CBC/BMP Laboratory Tests 11/11/18 12:11 Calcium Level 9.1 11/11/18 12:12 Red Blood Count 4.61, Mean Corpuscular Volume 91.5, Mean Corpuscular Hemoglobin 31.2, Mean Corpuscular Hemoglobin Concent 34.1, Red Cell Distribution Width 11.9, Neutrophils (%) (Auto) 71.6 H, Lymphocytes (%) (Auto) 21.3 L, Monocytes (%) (Auto) 5.7 H, Eosinophils (%) (Auto) 0.6, Basophils (%) (Auto) 0.4, Neutrophils # (Auto) 6.0, Lymphocytes # (Auto) 1.8, Monocytes # (Auto) 0.5, Eosinophils # (Auto) 0.1, Basophils # (Auto) 0.0 Microbiology Microbiology 11/11/18 Wet Prep - Final, Complete Problems (1) Syncope Status: Acute Problem Text: 23 years old white female with no past medical history except she had elective about 2 weeks ago, came with chief complaints of passing out while she was standing up. Patient not sure what time how many times and how many minutes. She was unconscious, but she says she had a palpitation and shortness of breath and she decided go to urgent care center where she was noticed to have orthostatic changes and tachycardia and was sent to the emergency room.. In the emergency room patient received 2 L of IV fluids with correction of her heart rate and blood pressure. She also had a pelvic sonogram done which was essentially within normal limits. Patient is being admitted with the diagnosis of syncope/dehydration and for observation for 24 hours. Patient lives alone. She has a no social support system as [place] is [place] (2) Dehydration Status: Acute Problem Text: Patient received 2 L of IV fluids. Will continue normal saline 850 mL per hour intake and output Monitor vital signs Out of bed as tolerated DVT prophylaxis prophylaxis not needed as patient is a very low risk for DVT Echocardiogram in a.m. Possible discharge in a.m. Plan / VTE VTE Prophylaxis Ordered?: No VTE Exclusion Mechanical Proph: Low Risk for VTE VTE Exclusion Pharmacological: At Low Risk for VTE BRENT SHEA MD Nov 11, 2018 18:18
[2018-11-11 22:50] VITALS: BP 128/61
[2018-11-12] MEDS: NS 1,000 ML IV SCH ×2 (01:10→07:55)
[2018-11-12 06:00] VITALS: BP 128/90
[2018-11-12 06:09] LABS: HEMATOCRIT 35.7 % (36.0-47.0); MEAN CORPUSCULAR HEMOGLOBIN 30.8 pg (27.0-33.0); MEAN CORPUSCULAR HGB CONC 33.6 g/dl (32.0-36.5); MEAN CORPUSCULAR VOLUME 91.8 fl (80.0-96.0); PLATELET COUNT, AUTOMATED 248 10^3/uL (150-450); RED BLOOD COUNT 3.89 10^6/uL (4.00-5.40); WHITE BLOOD COUNT 5.9 10^3/uL (4.0-10.0)
[2018-11-12 06:35] LABS: ALBUMIN 2.9 GM/DL (3.2-5.2); ALT/SGPT 10 U/L (12-78); BILIRUBIN,TOTAL 0.3 MG/DL (0.2-1.0); BLOOD UREA NITROGEN 3 MG/DL (7-18); CALCIUM LEVEL 8.1 MG/DL (8.5-10.1); CARBON DIOXIDE LEVEL 24 MEQ/L (21-32); CHLORIDE LEVEL 112 MEQ/L (98-107); CREATININE FOR GFR 0.63 MG/DL (0.55-1.30); GLOMERULAR FILTRATION RATE > 60.0 (>60); GLUCOSE, FASTING 88 MG/DL (70-100); POTASSIUM SERUM 3.9 MEQ/L (3.5-5.1); SODIUM LEVEL 142 MEQ/L (136-145); TOTAL PROTEIN 5.6 GM/DL (6.4-8.2)
--- NOTE | 2018-11-12 11:14 | DS.PDOC ---
Discharge Summary General Date of Admission Nov 11, 2018 at 17:43 Date of Discharge 11/12/18 Attending Physician: BRENT SHEA MD Discharge Summary PROCEDURES PERFORMED DURING STAY: None. ADMITTING DIAGNOSES: 1. Syncope, dehydration, status post elective D&C recently. DISCHARGE DIAGNOSES: 1. Syncope, dehydration, depression, status post elective D&C. COMPLICATIONS/CHIEF COMPLAINT: Syncope. HISTORY OF PRESENT ILLNESS: 23 years old white female with no past medical history except she had elective about 2 weeks ago, came with chief complaints of passing out while she was standing up. Patient not sure what time how many times and how many minutes. She was unconscious, but she says she had a palpitation and shortness of breath and she decided go to urgent care center where she was noticed to have orthostatic changes and tachycardia and was sent to the emergency room.. In the emergency room patient received 2 L of IV fluids with correction of her heart rate and blood pressure. She also had a pelvic sonogram done which was essentially within normal limits. Patient is being admitted with the diagnosis of syncope/dehydration and for observation for 24 hours.. HOSPITAL COURSE: Patient was admitted for observation purposes only. Patient did receive 2 L of normal saline in ED and was continued on 150 mL per hour. On the floor. Repeat blood work is essentially normal vital signs are stable. Patient can be discharged home and follow with her PCP in one week. Echocardiogram will be done before patient is discharged and report will be provided by calling patient home. DISCHARGE MEDICATIONS: Please see below. ALLERGIES: Please see below. PHYSICAL EXAMINATION ON DISCHARGE: VITAL SIGNS: Please see below. GENERAL: Within normal limits HEENT: PERRLA NECK: Supple CARDIOVASCULAR EXAMINATION: S1, S2, regular RESPIRATORY EXAMINATION: Clear to A&P ABDOMINAL EXAMINATION: Benign EXTREMITIES: No clubbing, cyanosis, edema SKIN: The normal limit NEUROLOGICAL EXAMINATION: no Focal motor sensory deficit PSYCHIATRIC EXAMINATION: Within normal limits LABORATORY DATA: Please see below. IMAGING: Pelvic sono: Within normal limits PROGNOSIS: Good ACTIVITY: As tolerated. DIET: As tolerated DISCHARGE PLAN: Follow with PCP in one week DISPOSITION: . Home DISCHARGE INSTRUCTIONS: 1. As per discharge instructions. ITEMS TO FOLLOWUP ON ON OUTPATIENT: 1. Follow with PCP in one week. DISCHARGE CONDITION: Stable. TIME SPENT ON DISCHARGE: 25 minutes. Vital Signs/I&Os Vital Signs Date Time Temp Pulse Resp B/P (MAP) Pulse Ox O2 Delivery O2 Flow Rate FiO2 8/22/19 06:00 97.4 83 18 128/90 (103) 100 11/11/18 12:09 Nasal Cannula 2.0 I&O- Last 24 Hours up to 6 AM 11/12/18 06:00 Intake Total 3200 ml Output Total 1000 ml Balance 2200 ml Laboratory Data Labs 24H Laboratory Tests 2 11/11/18 12:11: Anion Gap 9, Glomerular Filtration Rate > 60.0, Blood Urea Nitrogen 11, Creatinine 0.99, Sodium Level 141, Potassium Level 4.1, Chloride Level 107, Carbon Dioxide Level 25, Calcium Level 9.1, Magnesium Level 2.5H, Thyroid Stimulating Hormone (TSH) 0.438, Human Chorionic Gonadotropin, Qual NEGATIVE, Ethyl Alcohol Level < 0.003 11/11/18 12:12: Immature Granulocyte % (Auto) 0.4, White Blood Count 8.3, Red Blood Count 4.61, Hemoglobin 14.4, Hematocrit 42.2, Mean Corpuscular Volume 91.5, Mean Corpuscular Hemoglobin 31.2, Mean Corpuscular Hemoglobin Concent 34.1, Red Cell Distribution Width 11.9, Platelet Count 320, Neutrophils (%) (Auto) 71.6H, Lymphocytes (%) (Auto) 21.3L, Monocytes (%) (Auto) 5.7H, Eosinophils (%) (Auto) 0.6, Basophils (%) (Auto) 0.4, Neutrophils # (Auto) 6.0, Lymphocytes # (Auto) 1.8, Monocytes # (Auto) 0.5, Eosinophils # (Auto) 0.1, Basophils # (Auto) 0.0, Nucleated Red Blood Cells % (auto) 0.0, Prothrombin Time 14.0, Prothromb Time International Ratio 1.11, Activated Partial Thromboplast Time 27.1 11/11/18 12:23: Bedside Glucose (Misc Panel) 96 11/11/18 14:15: Chlamydia trachomatis DNA (RICCO) NEGATIVE, Neisseria gonorrhoeae DNA (RICCO) NEGATIVE 11/12/18 05:49: Nucleated Red Blood Cells % (auto) 0.0, Anion Gap 6L, Glomerular Filtration Rate > 60.0, Blood Urea Nitrogen 3#L, Creatinine 0.63, Sodium Level 142, Potassium Level 3.9, Chloride Level 112H, Carbon Dioxide Level 24, Calcium Level 8.1L, Aspartate Amino Transf (AST/SGOT) 9, Alanine Aminotransferase (ALT/SGPT) 10L, Alkaline Phosphatase 52, Total Bilirubin 0.3, Total Protein 5.6L, Albumin 2.9L, Albumin/Globulin Ratio 1.07 CBC/BMP Laboratory Tests 11/11/18 12:11 Calcium Level 9.1 11/11/18 12:12 Red Blood Count 4.61, Mean Corpuscular Volume 91.5, Mean Corpuscular Hemoglobin 31.2, Mean Corpuscular Hemoglobin Concent 34.1, Red Cell Distribution Width 11.9, Neutrophils (%) (Auto) 71.6 H, Lymphocytes (%) (Auto) 21.3 L, Monocytes (%) (Auto) 5.7 H, Eosinophils (%) (Auto) 0.6, Basophils (%) (Auto) 0.4, Neutrophils # (Auto) 6.0, Lymphocytes # (Auto) 1.8, Monocytes # (Auto) 0.5, Eosinophils # (Auto) 0.1, Basophils # (Auto) 0.0 11/12/18 05:49 Calcium Level 8.1 L, Red Blood Count 3.89 L, Mean Corpuscular Volume 91.8, Mean Corpuscular Hemoglobin 30.8, Mean Corpuscular Hemoglobin Concent 33.6, Red Cell Distribution Width 11.8, Aspartate Amino Transf (AST/SGOT) 9, Alanine Aminotransferase (ALT/SGPT) 10 L, Alkaline Phosphatase 52, Total Bilirubin 0.3, Total Protein 5.6 L, Albumin 2.9 L FSBS Laboratory Tests Test 11/11/18 12:23 Range/Units Bedside Glucose (Misc Panel) 96 70-105 MG/DL Microbiology Microbiology 11/11/18 Wet Prep - Final, Complete Discharge Medications Scheduled Bupropion Hcl (Bupropion Xl) 150 Mg Tab.er.24h, 150 MG PO DAILY, (Reported) Scheduled PRN Acetaminophen (Acetaminophen) 500 Mg Tablet, 500 MG PO Q6H PRN for PAIN, (Reported) Allergies Coded Allergies: cranberry (Verified Allergy, Intermediate, rash, 10/04/18) BRENT SHEA MD Nov 12, 2018 11:14
--- NOTE | 2018-11-12 13:29 | ECGEPIP ---
[facility] - ED Test Date: 2018-11-11 Pat Name: JANET VILLARREAL Department: Room: - Gender: Female [employer]: RITO : 1995 Requested By: Arabella Tovar Order Number: [id number] Reading MD: David Miranda Measurements Intervals [place] Rate: 117 P: 73 DE: 120 QRS: 93 QRSD: 77 T: 23 QT: 341 QTc: 477 Interpretive Statements SINUS TACHYCARDIA POSSIBLE LEFT ATRIAL ENLARGEMENT RIGHT AXIS DEVIATION NONSPECIFIC ST & T-WAVE ABNORMALITY SIMILAR TO 10/04/18 Electronically Signed on 11-12-2018 13:29:26 EDT by David Miranda
--- NOTE | 2018-11-12 21:30 | ECHO ---
DATE OF PROCEDURE: 11/11/2018 REFERRING PHYSICIAN: Dr. Jason Rodríguez INDICATION: Syncope. HEIGHT: 163 cm WEIGHT: 57.3 kg 2D MEASUREMENTS: Aortic root: 2.9 cm Left atrium: 3.1 cm Ventricular septum: 0.82 cm Posterior wall: 0.80 cm Left ventricle diastole: 4.6 cm Left atrial volume index: 20 Inferior vena cava: 1.2 cm with more than 50% respiratory variation. CVP estimated to be 5-10 mmHg. DOPPLER MEASUREMENTS: Aortic valve velocity: 128 cm/s LVOT velocity: 103 cm/s Trace mitral regurgitation, within normal limits. Mitral E velocity: 63.1 cm/s Mitral A velocity: 58.7 cm/s Mitral deceleration time: 176 milliseconds Very mild pulmonic regurgitation, within normal limits. No aortic regurgitation. No pulmonic regurgitation. MITRAL ANNULAR TISSUE DOPPLER: E prime septal: 10.1 cm/s E prime lateral: 17.0 cm/s DESCRIPTION: Rhythm was sinus. Image quality was good. This was a 2D, M-mode, color flow Doppler and pulse wave Doppler examination and included mitral annular tissue Doppler. CONCLUSIONS: 1. Normal echocardiogram Doppler. 2. Normal left ventricle internal dimensions and wall thickness. Normal regional left ventricular (LV) wall motion and wall thickening. Left ventricular ejection fraction (LVEF) 60% by visual estimate. Normal LV diastolic function. 3. No pericardial effusion.
== END 2018-11-12 11:58 | disposition home or self-care (01) ==
LOC: M ED 11:30 → M ED INP 17:43 → M MSPAV 22:51
PROVIDERS: ADMIT Internal Medicine; ATTEND Internal Medicine
DX: R55 Syncope and collapse (principal); E86.0 Dehydration; F32.9 Major depressive disorder, single episode, unspecified
CPT/HCPCS: 36415; 71275; 76376; 76830; 80048; 80053; 83735; 84443; 84703; 85025; 85027; 85610; 85730; 87210; 87491; 87591; 93005; 93041; 93306; 93976; 94760; 96360; 96361; 99285; G0404; G0463; G0480; Q9967

== ENCOUNTER 2019-06-05 01:08 | Inpatient (IN) | payer OTHER ==
[~2019-06-05] VITALS: Ht 165.1 cm; Wt 60.9 kg
[~2019-06-05 01:08] MED LIST changes: +IBUP-1022 PO
[2019-06-05 01:59] LABS: HEMATOCRIT 39.5 % (36.0-47.0); HEMOGLOBIN 13.6 g/dl (12.0-15.5); MEAN CORPUSCULAR HEMOGLOBIN 29.2 pg (27.0-33.0); MEAN CORPUSCULAR HGB CONC 34.4 g/dl (32.0-36.5); MEAN CORPUSCULAR VOLUME 84.8 fl (80.0-96.0); PLATELET COUNT, AUTOMATED 307 10^3/uL (150-450); RED BLOOD COUNT 4.66 10^6/uL (4.00-5.40); WHITE BLOOD COUNT 9.9 10^3/uL (4.0-10.0)
[2019-06-05 02:28] LABS: AMPHETAMINES LEVEL URINE NEGATIVE (NEGATIVE); BARBITURATES URINE NEGATIVE (NEGATIVE); BENZODIAZEPINES URINE NEGATIVE (NEGATIVE); CANNABINOIDS URINE NEGATIVE (NEGATIVE); COCAINE METABOLITE URINE NEGATIVE (NEGATIVE); METHADONE URINE NEGATIVE (NEGATIVE); OPIATES URINE NEGATIVE (NEGATIVE); PHENCYCLIDINE URINE NEGATIVE (NEGATIVE)
[2019-06-05 02:36] LABS: HCG, SERUM QUALITATIVE NEGATIVE (NEGATIVE)
[2019-06-05 02:45] LABS: ACETAMINOPHEN LEVEL < 2.0 UG/ML (10.0-30.0); ALBUMIN 3.9 GM/DL (3.2-5.2); ALT/SGPT 14 U/L (12-78); BILIRUBIN,DIRECT < 0.1 MG/DL (0.0-0.2); BILIRUBIN,TOTAL 0.3 MG/DL (0.2-1.0); BLOOD UREA NITROGEN 13 MG/DL (7-18); CALCIUM LEVEL 8.8 MG/DL (8.5-10.1); CARBON DIOXIDE LEVEL 24 MEQ/L (21-32); CHLORIDE LEVEL 109 MEQ/L (98-107); CREATININE FOR GFR 0.67 MG/DL (0.55-1.30); ETHYL ALCOHOL (ETHANOL) < 0.003 % (0.000-0.010); GLOMERULAR FILTRATION RATE > 60.0 (>60); GLUCOSE, FASTING 107 MG/DL (70-100); SALICYLATE LEVEL < 1.7 MG/DL (5.0-30.0); SODIUM LEVEL 141 MEQ/L (136-145); TOTAL PROTEIN 6.9 GM/DL (6.4-8.2)
[2019-06-05] MEDS ORDERED: MOM 30ML SUSPENSION UDC PO PRN (03:45)
[2019-06-05] MEDS ORDERED: MAALOX 30 ML SUSP *UDC PO PRN (03:45)
[2019-06-05] MEDS ORDERED: ACETAMINOPHEN TAB 650MG DOSE (2X325MG) PO PRN (03:45)
[2019-06-05] MEDS ORDERED: traZODone 50 MG TAB PO PRN (03:45)
[2019-06-05] MEDS ORDERED: OLANZapine ORAL DISINTEGRATING TAB 5MG PO PRN (03:45)
[2019-06-05] MEDS ORDERED: ENSK1TAB3 PO (04:06)
[2019-06-05 04:13] VITALS: BP 147/65
--- NOTE | 2019-06-05 10:31 | MHHPEPDOC ---
General Date Of Admission: Jun 05, 2019 Legal Status: 9.39 Chief Complaint "I didn't do anything" History of Present Illness HISTORY OF THE PRESENT ILLNESS: Patient is a 24 -year-old , female, with a history of depression and borderline personality d/o last admitted [facility] 10/07/2018 for SI who was brought to ED by MP's after pt's friend called them stating the the pt had sent her a text message referring to the pt going to sleep and not waking up, threatening to take a handful of pills. Per ED, MP's found 6-8 bottles full of a variety of pills on the pt's coffee table that the pt stated were her roommates. Pt stated in the ED that she was "texting a friend about just wanting to go to sleep and not wake up, but my therapist says that's normal." When asked about the pills found pt stated "maybe I said I would take a handful of pills when I was textiing." Per ED she has a history of 2 previous overdose attempts and stated "I'm too scared to try any other way." Psychiatric Review of Systems Depression (2 or more weeks): depressed mood, suicidal thoughts [place] (4 or more days of): denies Psychosis: denies PTSD: denies Anxiety: situational anxiety, stressor related anxiety Anxiety/ 6 months or more of: personality cluster A,BC (b) Past Psychiatric History Previous Psychiatric Diagnosis: depression, borderline personality d/o Previous Psychiatric Admissions: [facility] 10/07/2018 for depression and SI Suicide Attempts: history of 2 attempted self-harm via OD Psychiatric Follow-up: [facility] Psychiatric medications: has been on zoloft and celexa in the past, not currently taking medication Past Medical History Medical Problems history of 1 Head Injury: No Seizures: No Hospitalizations: Yes Surgeries: Yes Family Medical/Psychiatric HX Psychiatric Disorders: Yes (bipolar d/o and anxiety) Addiction: Yes (alcoholism both sides) Suicide Attemps/Completions: No Addiction History denies Social History Childhood: born and raised in [place], [place] in a 2 parent home and has siblings. Good childhood Abuse/Trauma: denies Current Living Situation: lives with roommate [address] Education: high school graduate and some college although dropped out due to feeling like it "wasn't for me" Employment: unemployed Social Support: parents Legal: denies Marital: currently her who just returned from [facility] and is currently under quarantine due to Coronavirus 14 Mental Status Examination General Appearance: well groomed, appears stated age, hospital scubs/clothing Build: average Demeanor: average Eye Contact: average Activity: average, anxious Behavior: cooperative Speech: clear, spontaneous, normal volume Mood: euthymic, anxious, other (crying to her mother on the phone that she wants to go home) Mood "I want to go home" Affect: full, congruent, anxious Thought Process: logical/linear, intact Thought Content (Delusions): none reported, denies SI, HI, AVH Thought Content (Other): none reported, appropriate Thought Content (Aggressive): none reported Perception (Hallucinations): none reported Perception (Other): none reported Cognition (Impairment of): none reported Cognition(Intelligence Est.): average Oriented: Awake, Alert, Oriented times three Insight: fair Judgment: Fair Psychosis: Denies Diagnoses Depression Unspecified Borderline Personality d/O A-FIB/CHADSVASC A-FIB History Current/History of A-Fib/PAF?: No Assessment Pt seen and states she's hear b/c she was texting a friend due to feeling stressed as she had been trying to file her taxes as a dependent as she is currently in the process of her who just returned for deployment to [place] and is under quarantine for Coronavirus 14 and called him, got into an argument with him that left her feeling depressed and more stressed. States she text her friend that she wanted to go to sleep, not wake up, "not exist" and states her therapist at the [facility] told her it's normal to feel that way. Advised that it is not normal to feel that way and that she is here to help her with those depressive thoughts. She declined starting an antidepressant as she has taken them in the past and felt they made her feel "strange." She is agreeable to attending groups as part of her treatment here and taking vistaril prn anxiety. She currently denies SI/HI, hallucinations, delusions. Feels safe here. Initial Treatment Plan 1. Patient was admitted on a 9.39 status. 2. Complete history was obtained. 3. With patients permission, family will be contacted and database will be expanded. 4. Patients medication regimen will be reviewed and changed accordingly. 5. Patient will be provided with protected environment. 6. Patient will be treated with individual, group, and milieu therapies. 7. Patient will receive supportive psych-education. 8. Discharge planning will commence immediately. 9. Outpatient follow-up treatment will be strongly recommended. 10. The initial treatment plan will focus initially on: * Depression. * Risk for suicide. 11. vistaril 25mg q4hr prn anxiety ESTIMATED LENGTH OF STAY: 3-5 DAYS. TIME SPENT COUNSELING AND COORDINATING INITIAL CARE: 60 minutes. Vital Signs Vital Signs Date Time Temp Pulse Resp B/P (MAP) Pulse Ox O2 Delivery O2 Flow Rate FiO2 06/05/19 04:13 99.1 100 14 147/65 (92) 06/05/19 01:34 100 Room Air Laboratory Data 24H Labs Laboratory Tests 2 06/05/19 01:52: Nucleated Red Blood Cells % (auto) 0.0, Anion Gap 8, Glomerular Filtration Rate > 60.0, Calcium Level 8.8, Total Bilirubin 0.3, Direct Bilirubin < 0.1, Aspartate Amino Transf (AST/SGOT) 10, Alanine Aminotransferase (ALT/SGPT) 14, Alkaline Phosphatase 61, Total Protein 6.9, Albumin 3.9, Albumin/Globulin Ratio 1.30, Thyroid Stimulating Hormone (TSH) 4.590H, Human Chorionic Gonadotropin, Qual NEGATIVE, Salicylates Level < 1.7L, Urine Opiates Screen NEGATIVE, Urine Methadone Screen NEGATIVE, Acetaminophen Level < 2.0L, Urine Barbiturates Screen NEGATIVE, Urine Phencyclidine Screen NEGATIVE, Urine Amphetamines Screen NEGATIVE, Urine Benzodiazepines Screen NEGATIVE, Urine Cocaine Metabolite Screen NEGATIVE, Urine Cannabinoids Screen NEGATIVE, Ethyl Alcohol Level < 0.003 CBC/BMP Laboratory Tests 06/05/19 01:52 Medications Scheduled Desogestrel-Ethinyl Estradiol (Enskyce 28 Tablet) 1 Each Tablet, 1 TAB PO DAILY, (Reported) Allergies Coded Allergies: cranberry (Verified Allergy, Intermediate, rash, 06/05/19) NAOMI YOUSIF DO Jun 05, 2019 10:31 am
--- NOTE | 2019-06-05 16:44 | HPE ---
DATE OF ADMISSION: 06/05/2019 REASON FOR CONSULTATION: Medical evaluation of inpatient psychiatric admission. PHYSICIAN REQUESTING CONSULTATION: Dr. Mcgregor HISTORY OF PRESENT ILLNESS: Ms. Mullen is a 24-year-old woman who has history of previous suicidal ideation times two, previous events secondary to overdose. She is not currently on any medications. Yesterday she did contact a friend that she was feeling down, and she stated that she was going to hurt herself by taking some pills. police were called to her home, and she was subsequently brought into the emergency room to be evaluated and was admitted to inpatient psychiatry for suicidal ideation. From a medical standpoint, patient is not complaining of any medical illnesses, nor does she have history of any. ALLERGIES: Cranberries. HOME MEDICATIONS: None. CURRENT MEDICATION: Have been reviewed by me in the electronic record. PAST MEDICAL HISTORY: Notable for depression, borderline personality, and suicide attempt times two by overdose in the past. She was last hospitalized [facility] the [facility] approximately a year ago. SURGICAL HISTORY: Notable for wisdom teeth extraction. SOCIAL HISTORY: Patient is but in the process of being . Her is the and has just returned from [email or web address] and is currently under [place] [id number] quarantine. She does not use any tobacco, alcohol, or illicit drug. FAMILY HISTORY: Notable for multiple members who smoke and have sequelae of lung cancer and chronic obstructive pulmonary disease (COPD). REVIEW OF SYSTEMS: Twelve systems reviewed with the patient, otherwise negative. She has an IUD in place. On examination, patient's temperature is 99.1, pulse 100, respirations 14, blood pressure 147/65. General: The patient is alert and oriented times three. Appears in no acute distress. She is a young female who appears to be in good health. Her skin is without any rashes, hives, jaundice, or cyanosis. Her head is atraumatic. Her pupils are intact and reactive to light. She has eyeglasses. No scleral icterus. Tympanic membranes visually clear without any visible perforation, discharge, or erythema. Oropharynx is clear without exudate, erythema, thrush. Her nares are patent bilaterally without any visible discharge. Her neck is supple without lymphadenopathy. Lung sounds are heard bilaterally without rales, wheezes, or rhonchi on anterior, lateral, and posterior lung stratton. Heart is S1, S2. No audible murmurs, rubs, or gallops. Her abdomen is soft, nontender, nondistended. Extremities are without any significant cyanosis, clubbing, or edema. PERTINENT DIAGNOSTIC STUDIES: White count is 9.9, hemoglobin 13, hematocrit 39, platelet count 307,000. Sodium 141, potassium 4, chorine 109, bicarbonate is 24, BUN is 13, creatinine 0.67, glucose is 107. TSH is 4.9. Urine HCG was negative. Salicylates were negative. Tylenol was negative. Alcohol level was negative. Urine drug screen was negative. IMPRESSION: 1. Normal adult female physical exam. 2. Depression. 3. Suicidal ideation. RECOMMENDATIONS: Patient is symptomatically stable from my standpoint. May continue with ongoing psychiatric treatment and evaluation. Thank you for allowing us to participate in the care of this patient. I will sign off at this time. Please contact me if there are any issues that arise.
[2019-06-05 17:48] VITALS: BP 110/58
[2019-06-06 06:22] VITALS: BP 125/69
--- NOTE | 2019-06-06 10:08 | MHIPNPDOC ---
[facility] Progress Note Progress Note DATE OF SERVICE: 06/06/19 HISTORY: Patient is a 24 -year-old , female, with a history of depression and borderline personality d/o last admitted [facility] 10/07/2018 for SI who was brought to ED by MP's after pt's friend called them stating the the pt had sent her a text message referring to the pt going to sleep and not waking up, threatening to take a handful of pills. Per ED, MP's found 6-8 bottles full of a variety of pills on the pt's coffee table that the pt stated were her roommates. Pt stated in the ED that she was "texting a friend about just wanti ng to go to sleep and not wake up, but my therapist says that's normal." When asked about the pills found pt stated "maybe I said I would take a handful of pills when I was textiing." Per ED she has a history of 2 previous overdose attempts and stated "I'm too scared to try any other way." Pt seen and states she's hear b/c she was texting a friend due to feeling stressed as she had been trying to file her taxes as a dependent as she is currently in the process of her who just returned for deployment to [place] and is under quarantine for Coronavirus 14 and called him, got into an argument with him that left her feeling depressed and more stressed. States she text her friend that she wanted to go to sleep, not wake up, "not exist" and states her therapist at the [facility] told her it's normal to feel that way. Advised that it is not normal to feel that way and that she is here to help her with those depressive thoughts. She declined starting an antidepressant as she has taken them in the past and felt they made her feel "strange." She is agreeable to attending groups as part of her treatment here and taking vistaril prn anxiety. She currently denies SI/HI, hallucinations, delusions. Feels safe here. VITAL SIGNS: See below. NEW TEST RESULTS: See below. CURRENT MEDICATIONS: See below. MENTAL STATUS EXAMINATION: General Appearance: well groomed, appears stated age, hospital scrubs/clothing Build: average Demeanor: average Eye Contact: average Activity: average, anxious Behavior: cooperative Speech: clear, spontaneous, normal volume Mood: euthymic, less anxious Mood "good" Affect: full, congruent, less anxious Thought Process: logical/linear, intact Thought Content (Delusions): none reported, denies SI, HI, AVH Thought Content (Other): none reported, appropriate Thought Content (Aggressive): none reported Perception (Hallucinations): none reported Perception (Other): none reported Cognition (Impairment of): none reported Cognition(Intelligence Est.): average Oriented: Awake, Alert, Oriented times three Insight: fair Judgment: Fair Psychosis: Denies DIAGNOSES: Depression Unspecified Borderline Personality d/O ASSESSMENT:Pt seen and states that her mood is "good" today as she socializing with her peers and her anxiety is improved. States she slept well last night. She is attending groups and finding them helpful. She denies SI/HI, hallucinations, delusions. Hopeful to go home tomorrow. She has supportive parents she is close with. Pt feels safe here. MANAGEMENT PLAN: d/c planning tomorrow vistaril 25mg q4hr prn anxiety TIME SPENT: 30 minutes. Vital Signs Vital Signs Date Time Temp Pulse Resp B/P (MAP) Pulse Ox O2 Delivery O2 Flow Rate FiO2 06/06/19 06:22 98.5 91 14 125/69 (87) 06/05/19 17:48 100 Room Air Current Medications Current Medications Medications (Trade) Dose Ordered Sig/Deanne Route PRN Reason Start Time Stop Time Status Last Admin Dose Admin Acetaminophen (Tylenol Tab) 650 mg Q6HP PRN PO HEADACHE or DISCOMFORT 06/05/19 03:45 Al Hydrox/Mg Hydrox/Simethicone (Mylanta) 30 ml Q4HP PRN PO HEARTBURN/INDIGESTION 06/05/19 03:45 Home Med (Med Rec Complete!) ASDIRECTED XX 06/05/19 04:15 06/05/19 04:24 DC Magnesium Hydroxide (Milk Of Magnesia) 30 ml DAILYPRN PRN PO CONSTIPATION 06/05/19 03:45 Olanzapine (ZyPREXA ZYDIS) 5 mg Q4HP PRN PO anixety/agitation 06/05/19 03:45 Trazodone HCl (Desyrel) 50 mg QHSP PRN PO INSOMNIA 06/05/19 03:45 Allergies Coded Allergies: cranberry (Verified Allergy, Intermediate, rash, 06/05/19) NAOMI YOUSIF DO Jun 06, 2019 10:04 am
[2019-06-06 15:00] VITALS: BP 112/60
[2019-06-07 06:12] VITALS: BP 112/60
--- NOTE | 2019-06-07 09:35 | MHDSPDOC ---
[facility] Discharge Summary Discharge Summary DATE OF ADMISSION: Jun 05, 2019 at 3:42 am DATE OF DISCHARGE: Jun 07, 2019 DISCHARGE DIAGNOSES: Depression Unspecified Borderline Personality d/O REASON FOR ADMISSION: Patient is a 24 -year-old , female, with a history of depression and borderline personality d/o last admitted [facility] 10/07/2018 for SI who was brought to ED by MP's after pt's friend called them stating the the pt had sent her a text message referring to the pt going to sleep and not waking up, threatening to take a handful of pills. Per ED, MP's found 6-8 bottles full of a variety of pills on the pt's coffee table that the pt stated were her roommates. Pt stated in the ED that she was "texting a friend about just wanting to go to sleep and not wake up, but my therapist says that's normal." When asked about the pills found pt stated "maybe I said I would take a handful of pills when I was textiing." Per ED she has a history of 2 previous overdose attempts and stated "I'm too scared to try any other way." Pt seen and states she's hear b/c she was texting a friend due to feeling s tressed as she had been trying to file her taxes as a dependent as she is currently in the process of her who just returned for deployment to [place] and is under quarantine for Coronavirus 14 and called him, got into an argument with him that left her feeling depressed and more stressed. States she text her friend that she wanted to go to sleep, not wake up, "not exist" and states her therapist at the [facility] told her it's normal to feel that way. Advised that it is not normal to feel that way and that she is here to help her with those depressive thoughts. She declined starting an antidepressant as she has taken them in the past and felt they made her feel "strange." She is agreeable to attending groups as part of her treatment here and taking vistaril prn anxiety. She currently denies SI/HI, hallucinations, delusions. Feels safe here. CONSULTANTS INVOLVED: none TREATMENT AND PROGRESS ON THE UNIT : Pt was admitted to [facility], seen for psychiatric assessment and declined starting any medication as she has taken antidepressant medication in the past and not found it helpful. She states she would like to continue with outpatient therapy as treatment. She was provided vistaril 25mg q6hr prn anxiety and trazodone 50mg qhs prn insomnia. She attended groups daily during her stay. Her symptoms improved with treatment. On day of discharge she denied depression, anxiety, insomnia, SI/HI, hallucinations, delusions. She was discharged home with follow-up at the [facility]. She felt safe for discharge. DISCHARGE ASSESSMENT: Pt seen and states that her mood is "good" today and is looking forward to going home today. She is socializing with her peers on the unit and finding it helpful. States she slept well last night. She is attend ing groups and finding them helpful. She denies depression, anxiety, insomnia, SI/HI, hallucinations, delusions. She has supportive parents she is close with. Pt feels safe to d/c home today. MENTAL STATUS EXAMINATION ON DISCHARGE: General Appearance: well groomed, appears stated age, hospital scrubs/clothing Build: average Demeanor: average Eye Contact: average Activity: average Behavior: cooperative Speech: clear, spontaneous, normal volume Mood: euthymic Mood "good" Affect: full, congruent Thought Process: logical/linear, intact Thought Content (Delusions): none reported, denies SI, HI, AVH Thought Content (Other): none reported, appropriate Thought Content (Aggressive): none reported Perception (Hallucinations): none reported Perception (Other): none reported Cognition (Impairment of): none reported Cognition(Intelligence Est.): average Oriented: Awake, Alert, Oriented times three Insight: good Judgment: good Psychosis: Denies. MEDICATIONS ON DISCHARGE: none PLAN/FOLLOWUP ARRANGEMENTS: D/c home with follow-up at the [facility]. The amount of time spent in the coordination of care for this patient was approximately 30 minutes. Vital Signs/I&Os Vital Signs Date Time Temp Pulse Resp B/P (MAP) Pulse Ox O2 Delivery O2 Flow Rate FiO2 06/07/19 06:12 97.5 68 14 112/60 (77) 06/06/19 15:00 98 Room Air Medications Scheduled Desogestrel-Ethinyl Estradiol (Enskyce 28 Tablet) 1 Each Tablet, 1 TAB PO DAILY, (Reported) Allergies Coded Allergies: cranberry (Verified Allergy, Intermediate, rash, 06/05/19) NAOMI YOUSIF DO Jun 07, 2019 9:35 am
== END 2019-06-07 12:50 | disposition home or self-care (01) | DRG 881 ==
LOC: M ED 01:08 → M ED INP 03:42 → M PSY 04:12
PROVIDERS: ADMIT Psychiatry & Neurology Psychiatry; ATTEND Psychiatry & Neurology Psychiatry
DX: F32.9 Major depressive disorder, single episode, unspecified (principal); F60.3 Borderline personality disorder; Z91.5 Personal history of self-harm; Z81.8 Family history of other mental and behavioral disorders; Z81.1 Family history of alcohol abuse and dependence; Z63.0 Problems in relationship with spouse or partner; Z63.5 Disruption of family by separation and divorce; Z79.899 Other long term (current) drug therapy; Z91.018 Allergy to other foods

== ENCOUNTER → 2022-08-30 | Outpatient (REF) | payer OTHER ==
[~2022-08-30] MED LIST changes: +BUPR150T12 PO; -BUPR150T3 PO; +ENSK1TAB3 PO; +ZOLO50TA PO
== END ==
LOC: M LAB REF 12:05
PROVIDERS: ATTEND Physician Assistant
DX: B34.9 Viral infection, unspecified (principal)

== ENCOUNTER 2022-09-01 20:58 | Emergency (ER) | payer OTHER ==
[~2022-09-01] VITALS: Ht 165.1 cm; Wt 68.2 kg
[~2022-09-01 20:58] MED LIST changes: -ZOLO50TA PO
[2022-09-01 20:59] VITALS: BP 136/81; TEMP 99.8; O2SAT 97
[2022-09-01] MEDS ORDERED: ZOLO50TA PO (21:06)
== END 2022-09-02 00:24 | disposition left against medical advice (07) ==
LOC: M ED 20:58
DX: R50.9 Fever, unspecified (principal); Z53.21 Procedure and treatment not carried out due to patient leaving prior to being seen by health care provider

== ENCOUNTER → 2023-10-30 | Outpatient (CLI) | payer OTHER ==
[~2023-10-30] MED LIST changes: +ZOLO50TA PO
[2023-10-30 14:14] LABS: HEMATOCRIT 38.7 % (36.0-47.0); HEMOGLOBIN 13.4 g/dl (12.0-15.5); MEAN CORPUSCULAR HEMOGLOBIN 30.7 pg (27.0-33.0); MEAN CORPUSCULAR HGB CONC 34.6 g/dl (32.0-36.5); MEAN CORPUSCULAR VOLUME 88.8 fl (80.0-96.0); PLATELET COUNT, AUTOMATED 242 10^3/uL (150-450); RED BLOOD COUNT 4.36 10^6/uL (4.00-5.40); WHITE BLOOD COUNT 5.1 10^3/uL (4.0-10.0)
[2023-10-30 14:48] LABS: FERRITIN 25.8 NG/ML (7.3-270.7)
== END ==
LOC: M PLALAB 11:36
PROVIDERS: ATTEND Family Medicine
DX: D50.9 Iron deficiency anemia, unspecified (principal)

== ENCOUNTER → 2024-07-30 | Outpatient (CLI) | payer OTHER | LOC: M WHC 08:18 | PROVIDERS: ATTEND Nurse Practitioner Family | DX: Z30.431 Encounter for routine checking of intrauterine contraceptive device (principal); N92.0 Excessive and frequent menstruation with regular cycle; N94.10 Unspecified dyspareunia ==

== ENCOUNTER 2024-10-26 22:22 | Emergency (ER) | payer OTHER ==
[~2024-10-26] VITALS: Ht 162.6 cm; Wt 70.5 kg
[~2024-10-26 22:22] MED LIST changes: -LEXA1TAB PO; -LEXA1TAB2 PO
[2024-10-26 22:27] VITALS: BP 140/92; TEMP 97.9; O2SAT 100
== END 2024-10-27 00:40 | disposition left against medical advice (07) ==
LOC: M ED 22:22
DX: Z53.21 Procedure and treatment not carried out due to patient leaving prior to being seen by health care provider (principal)

== ENCOUNTER → 2024-10-26 | Outpatient (REF) | payer OTHER ==
[~2024-10-26] MED LIST changes: +LEXA1TAB PO; +LEXA1TAB2 PO
[2024-10-26 18:06] LABS: APPEARANCE, URINE HAZY (CLEAR); BACTERIA, URINE AUTO NEGATIVE (NEGATIVE); BILIRUBIN, URINE AUTO NEGATIVE (NEGATIVE); BLOOD, URINE BLOOD NEGATIVE (NEGATIVE); GLUCOSE, URINE (UA) AUTO NEGATIVE (NEGATIVE); KETONE, URINE AUTO TRACE mg/dL (NEGATIVE); LEUKOCYTE ESTERASE, URINE AUTO NEGATIVE (NEGATIVE); MUCUS, URINE SMALL (NEGATIVE); NITRITE, URINE AUTO NEGATIVE (NEGATIVE); PROTEIN, URINE AUTO 1+ mg/dL (NEGATIVE); RBC, URINE AUTO 7 /HPF (0-3); SPECIFIC GRAVITY URINE AUTO 1.029 (1.002-1.035); SQUAMOUS EPITHELIAL CELL UR AU 4 /HPF (0-6); UROBILINOGEN, URINE AUTO 2.0 mg/dL (0.0-2.0); WBC, URINE AUTO 2 /HPF (0-3)
== END ==
LOC: M LAB REF 17:27
PROVIDERS: ATTEND Physician Assistant Medical
DX: N39.0 Urinary tract infection, site not specified (principal)

== ENCOUNTER 2024-10-29 20:47 | Emergency (ER) | payer OTHER ==
[~2024-10-29] VITALS: Ht 162.6 cm; Wt 69.2 kg
[2024-10-29] MEDS ORDERED: LEXA1TAB PO (21:04)
[2024-10-30 00:31] LABS: BASO # 0.0 10^3/uL (0.0-0.2); BASO % 0.4 % (0.0-1.0); EOS # 0.1 10^3/uL (0.0-0.5); EOS % 1.7 % (0.0-3.0); LYMPH # 3.4 10^3/uL (1.5-5.0); LYMPH % 43.9 % (24.0-44.0); MONO # 0.6 10^3/uL (0.0-0.8); MONO % 7.9 % (2.0-8.0); NEUTROPHILS # 3.5 10^3/uL (1.5-8.5); NEUTROPHILS % 45.8 % (36.0-66.0); PLATELET COUNT, AUTOMATED 289 10^3/uL (150-450)
[2024-10-30 00:57] LABS: CPK CREATINE PHOSPHOKINASE 118 U/L (34-145)
[2024-10-30 00:58] LABS: CALCIUM LEVEL 8.8 MG/DL (8.5-10.1); CARBON DIOXIDE LEVEL 26 MMOL/L (20-31); CHLORIDE LEVEL 109 MMOL/L (98-107); CK-MB VALUE MASS < 1.0 NG/ML (<3.6); CREATININE FOR GFR 0.69 MG/DL (0.55-1.30); GLOMERULAR FILTRATION RATE > 90.0 (>60); POTASSIUM SERUM 4.0 MMOL/L (3.5-5.1); SODIUM LEVEL 143 MMOL/L (136-145)
[2024-10-30 01:43] LABS: CK-MB VALUE MASS 1.5 NG/ML (<3.6)
[2024-10-30 01:45] LABS: CPK CREATINE PHOSPHOKINASE 127 U/L (34-145); MB/CK RELATIVE INDEX 1.18 (< OR =4)
[2024-10-30] MEDS ORDERED: LEXA1TAB2 PO (02:32)
[2024-10-30 03:02] VITALS: BP 138/73; TEMP 97.7; O2SAT 100
== END 2024-10-30 03:05 | disposition home or self-care (01) ==
LOC: M ED 20:47
DX: F41.1 Generalized anxiety disorder (principal); F32.9 Major depressive disorder, single episode, unspecified; F41.0 Panic disorder [episodic paroxysmal anxiety]
CPT/HCPCS: 71045; 80048; 82550; 82553; 84484; 85025; 85379; 93005; 93041; 94760; 96374; 99285; J2060

== ENCOUNTER → 2024-11-16 | Outpatient (REF) | payer OTHER ==
[~2024-11-16] MED LIST changes: -IBUP-1022 PO; +IBUP600T42 PO; +LEXA1TAB PO; +LEXA1TAB2 PO
== END ==
LOC: M SFHCPLAZ 15:24
PROVIDERS: ATTEND Family Medicine
DX: F41.1 Generalized anxiety disorder (principal)

== ENCOUNTER → 2024-12-13 | Outpatient (CLI) | payer OTHER | LOC: M SLEEP HO 11:50 | PROVIDERS: ATTEND Psychiatry & Neurology Psychiatry | DX: G47.33 Obstructive sleep apnea (adult) (pediatric) (principal); G47.21 Circadian rhythm sleep disorder, delayed sleep phase type; Z72.821 Inadequate sleep hygiene ==